=== PATIENT | female | born 1990 | race Caucasian/White ===

== ENCOUNTER → 2018-12-28 | Outpatient (CLI) | payer OTHER ==
[~2018-12-28] MED LIST: PREN-127 PO
[2018-12-28 11:52] LABS: PLATELET COUNT, AUTOMATED 259 K/uL (150-450)
== END ==
LOC: LAB 10:37
PROVIDERS: ATTEND Obstetrics & Gynecology
DX: Z34.91 Encounter for supervision of normal pregnancy, unspecified, first trimester (principal)
CPT/HCPCS: 36415; 81001; 85025; 86592; 86703; 86762; 86850; 86900; 86901; 87088; 87340

== ENCOUNTER 2019-01-27 00:29 | Emergency (ER) | payer OTHER ==
[2019-01-27] MEDS ORDERED: MISOPROSTOL 200 MCG TAB PO ONE (01:20)
[2019-01-27 01:25] LABS: PLATELET COUNT, AUTOMATED 290 K/uL (150-450)
[2019-01-27] MEDS ORDERED: NS(*) 0.9% 1000 ML BAG 1,000 ML IV ONE (01:40)
--- NOTE | 2019-01-27 01:42 | ER Report ---
History and Physical Time Seen By MD: 00:30 Hx. of Stated Complaint: STARTED December, GOLF BALL SIZED CLOTS ON EVERY 40 MIN, SLOWED DOWN SUN AND MON. STARTED AGAIN TONIGHT PASSING HUGE CLOTS ABOUT EVERY 30 MIN. RECENTLY HAD A MISCARRAIGE ON JANUARY 04 HPI/ROS CHIEF COMPLAINT: Vaginal bleeding HISTORY OF PRESENT ILLNESS: 28-year-old female was a G1 at 8 weeks one January 06, who had ultrasound noting a missed AB. Patient went on to have symptoms of miscarriage and has had intermittent bleeding and clots for the past 10 days. She states that the amount of bleeding has been waxing waning, however this evening at 10 PM she began having heavy bleeding and is gone through 6 pads in the past 3 hours. She is mildly lightheaded. She feels like she is having ongoing bleeding and mild cramping. She has no chest pain or shortness of breath. She has no known history of bleeding diatheses herself or family. REVIEW OF SYSTEMS: Constitutional: No fever, no chills. Eyes: No discharge. ENT: No sore throat. Cardiovascular: No chest pain, no palpitations. Respiratory: No cough, no shortness of breath. Gastrointestinal: above Genitourinary: above Musculoskeletal: No back pain. Skin: No rashes. Neurological: No headache. Remainder of the 14 system rev: Yes Allergies: Coded Allergies: anju (Verified Allergy, Severe, HIVES, throat swelling, 01/27/19) Home Meds Reported Medications Vits W-Ca,Fe,Fa(<1MG) ( VITAMINS) 1 Each Tablet, 1 EACH PO DAILY, TAB 12/28/18 Reviewed Nurses Notes: Yes Old Medical Records Reviewed: Yes Smoking Status: Never Smoker Hx Substance Use Disorder: No Hx Alcohol Use: No Constitutional Vital Sign - Last 24 Hours 01/27/19 00:34 Temp 99.2 Pulse 93 Resp 16 B/P (MAP) 131/97 Pulse Ox 95 O2 Delivery Room Air Physical Exam General Appearance: The patient is alert, has no immediate need for airway protection and no signs of toxicity. Eyes: Pupils equal and round no pallor or injection. ENT, Mouth: Mucous membranes are moist. Respiratory: There are no retractions, lungs are clear to auscultation. Cardiovascular: Regular rate and rhythm. no m/r/g Gastrointestinal: Abdomen is soft and non tender, no masses, bowel sounds normal. Uterus not palpable Neurological: alert, oriented, no gross focal deficit Skin: Warm and dry, no rashes. Musculoskeletal: Extremities are nontender, nonswollen and have full range of motion. - vaginal vault filled with blood/clots. After evacuation of blood, pt has noted brisk bleeding from cervix. DIFFERENTIAL DIAGNOSIS: After history and physical exam differential diagnosis was considered for retained POC, uterine atony, endometritis, or other complication of findings. Medical Decision Making Data Points Result Diagram: 01/27/198 01/27/198 Laboratory Hematology Test 01/27/19 01:08 White Blood Count 9.2 k/uL (4.5-11.0) Red Blood Count 3.97 M/uL (4.17-5.56) L Hemoglobin 12.6 g/dL (12.0-16.0) Hematocrit 36.1 % (34.0-47.0) Mean Corpuscular Volume 91.1 fL (80.0-96.0) Mean Corpuscular Hemoglobin 31.7 pg (26.0-33.0) Mean Corpuscular Hemoglobin Concent 34.8 g/dL (32.0-36.0) Red Cell Distribution Width 13.6 % (11.5-14.5) Platelet Count 290 K/uL (150-450) Mean Platelet Volume 6.8 fL (7.2-11.1) L Neutrophils (%) (Auto) 56.0 % (39.4-72.5) Lymphocytes (%) (Auto) 37.2 % (17.6-49.6) Monocytes (%) (Auto) 4.7 % (4.1-12.4) Eosinophils (%) (Auto) 1.6 % (0.4-6.7) Basophils (%) (Auto) 0.5 % (0.3-1.4) Nucleated RBC Relative Count (auto) 0.0 /100WBC Neutrophils # (Auto) 5.2 K/uL (2.0-7.4) Lymphocytes # (Auto) 3.4 K/uL (1.3-3.6) Monocytes # (Auto) 0.4 K/uL (0.3-1.0) Eosinophils # (Auto) 0.2 K/uL (0.0-0.5) Basophils # (Auto) 0.0 K/uL (0.0-0.1) Nucleated RBC Absolute Count (auto) 0.00 K/uL Chemistry Test 01/27/19 01:08 Sodium Level 138 mmol/L (137-145) Potassium Level 3.5 mmol/L (3.5-5.0) Chloride Level 103 mmol/L (98-107) Carbon Dioxide Level 25 mmol/L (22-31) Blood Urea Nitrogen 12 mg/dl (7-18) Creatinine 0.90 mg/dl (0.52-1.04) Glomerular Filtration Rate Calc > 60.0 Random Glucose 97 mg/dl (75-110) Calcium Level 9.5 mg/dl (8.4-10.2) Human Chorionic Gonadotropin, Quant 964 mIU/ml Urinalysis Test 01/27/19 00:45 Urine Color Red Urine Clarity Clear Urine pH 7.0 pH (4.8-9.5) Urine Specific [place] 1.003 Urine Protein 100 mg/dL (NEGATIVE) Urine Glucose (UA) 50 mg/dL (NEGATIVE) Urine Ketones Negative mg/dL (NEGATIVE) Urine Blood Moderate (NEGATIVE) Urine Nitrite Negative (NEGATIVE) Urine Bilirubin Negative (NEGATIVE) Urine Urobilinogen Negative mg/dL (0.2-1.9) Urine Leukocyte Esterase Negative (NEGATIVE) Urine RBC 447 /HPF (0-2/HPF) Urine WBC 7 /HPF (0-5/HPF) Urine Squamous Epithelial Cells Moderate /LPF (</=FEW) Urine Bacteria Few /HPF (NONE-FEW) Urine Mucus Few /HPF (NONE-FEW) Urine HCG, Qualitative Positive (NEGATIVE) ED Course/Re-evaluation ED Course 28 f presents with brisk uterine bleeding. IV's initiated, I consulted Dr. Corrales for initial management recommendations and evaluation; 800mg cytotec administered. Pelvic us ordered While US does not show retained products or active bleeding, pt does have continued elevated quant of 964; approx 1/2 of quant on 01/22. Rpt pelvic exam shows some blood/clot in vault, but no active bleeding from cervix. Pt hd stable and comfortable on reassessment. I re-consulted Dr. Corrales who agrees with plan to d/c, pt will call ob in am for f/u, reassessment, outpt labs. Understands SRP.s Decision to Disposition Date: Jan 27, 2019 Decision to Disposition Time: 03:00 Depart Departure Latest Vital Signs Vital Signs Date Time Temp Pulse Resp B/P (MAP) Pulse Ox O2 Delivery O2 Flow Rate FiO2 01/27/19 00:34 99.2 93 16 131/97 95 Room Air Impression: Primary Impression: Uterine bleeding Condition: Improved Disposition: HOME OR SELF-CARE Referrals: LUIS KNOTT DO (PCP) 1 Day Patient Instructions: Miscarriage (ED) Additional Instructions: Please call Dr. To's office in the morning for re-exam. Return for worsening bleeding, lightheadedness, or any concerns. TIFFANY REID MD Jan 27, 2019 01:42
--- NOTE | 2019-01-27 02:47 | RADIOLOGY IMAGING REPORT ---
FACILITY: [facility] [place] PATIENT NAME: Tish Faulkner : 1990 MR: [id number] V: [id number] EXAM DATE: ORDERING PHYSICIAN: TIFFANY REID TECHNOLOGIST: Location: [facility] Patient: Tish Faulkner : 1990 Visit/Account:[id number] Date of Sevice: 01/27/2019 OB TRANSVAGINAL HISTORY: vaginal bleeding. History of demise 01/04/2019 EXAMINATION: Transvaginal pelvic ultrasound with duplex Doppler evaluation COMPARISON: None. FINDINGS: Uterus: 7.6 x 3.5 x 4.6 cm. Myometrium: negative Endometrium: 4.7 mm. No endometrial mass or abnormal fluid. No increased vascularity. Cervix: negative Ovaries: Right ovary measuring 2.1 x 1 point 4 x 4 by 1.6 cm. Left ovary measuring 2.0 x 1.3 x 1.7 cm . 1.4 x 1.1 x 1.0 cm corpus luteal cyst in the left ovary. Blood flow is documented in each ovary by Doppler ultrasound. Adnexa: negative Free pelvic fluid: none IMPRESSION: Negative ultrasound for any evidence of retained products of conception. Normal-appearing adnexal reg ions bilaterally Report Dictated By: Pb Augustine MD at 01/27/2019 2:34 AM Report E-Signed By: Pb Augustine MD at 01/27/2019 2:38 AM WSN:[id number]
== END 2019-01-27 03:01 | disposition home or self-care (01) ==
LOC: ER 00:44
DX: N93.9 Abnormal uterine and vaginal bleeding, unspecified (principal)
CPT/HCPCS: 76817; 81001; 81025; 84702; 85025; 86850; 86900; 86901; 96360; 96361; 99284; J7030; 82310; 82374; 82435; 82565; 82947; 84132; 84295; 84520